=== PATIENT | female | born 1995 | race African-American/Black ===

== ENCOUNTER 2018-02-19 13:50 | Emergency (ER) | payer OTHER ==
[~2018-02-19] VITALS: Ht 149.9 cm; Wt 42.8 kg
[~2018-02-19 13:50] MED LIST: MEDROXYPRO150 MG/1 M IM
[2018-02-19 16:13] VITALS: BP 115/70
== END 2018-02-19 16:16 | disposition home or self-care (01) ==
LOC: EME 13:50
DX: S06.0X0A Concussion without loss of consciousness, initial encounter (principal); W04.XXXA Fall while being carried or supported by other persons, initial encounter
CPT/HCPCS: 70450; 99281; 99284